=== PATIENT | female | born 1965 | race Caucasian/White ===

== ENCOUNTER 2025-05-13 09:38 | Inpatient (IN) | payer MEDICAID ==
[~2025-05-13] VITALS: Ht 167.6 cm; Wt 85.3 kg
[~2025-05-13 09:38] MED LIST: AMLO5TAB88 PO; ASPI-1406 PO; BUPR-114 PO; CLOP-31 PO; EMPA25TA PO; GLIM4TAB36 MT; HYDR50TA39 PO; INSU100I28 SQ; LIP40 PO; LOSA25TA26 PO; METF-1150 MT; SYN150 PO
[2025-05-13 09:40] VITALS: O2SAT 99
[2025-05-13 10:10] LABS: BASOPHILS % 0.2 % (0.0-2.0); EOSINOPHILS % 0.3 % (0.0-5.0); HEMATOCRIT. 39.0 % (36.0-48.0); HEMOGLOBIN. 12.6 g/dL (12.0-16.0); LYMPHOCYTES % 14.2 % (20.0-50.0); MEAN PLATELET VOLUME 9.1 fl (7.4-10.4); MONOCYTES % 4.2 % (2.0-8.0); NEUTROPHILS % 81.1 % (40.0-76.0); PLATELET 344 x1000/uL (130-400); RED BLOOD CELL COUNT 4.51 mill/uL (4.2-5.4); RED CELL DISTRIBUTION WIDTH 16.1 % (11.6-14.6)
[2025-05-13 10:24] LABS: CREATININE 1.1 mg/dL (0.6-1.0); UREA NITROGEN BLOOD 10 mg/dL (9-23)
[2025-05-13 10:25] LABS: ETHANOL BLOOD < 10 mg/dL (<10); TROPONIN I HIGH SENSITIVITY < 4 ng/L (3.0-34)
[2025-05-13] MEDS ORDERED: ACETAMINOPHEN 325MG TABLET PO PRN (12:30)
[2025-05-13] MEDS ORDERED: IPRATROPIUM/ALBUTEROL 0.5-3(2.5)MG/3ML NEB HHN PRN (12:30)
[2025-05-13] MEDS ORDERED: ONDANSETRON HCL 4MG/2ML INJ IV PRN (12:30)
[2025-05-13] MEDS ORDERED: CLONIDINE 0.1MG TABLET PO PRN (12:30)
[2025-05-13] MEDS ORDERED: DOCUSATE SODIUM 100MG CAPSULE PO PRN (12:30)
[2025-05-13 12:52] LABS: PHOSPHORUS 3.8 mg/dL (2.5-4.9)
[2025-05-13] MEDS: PANTOPRAZOLE SODIUM 40 MG/VIAL IV SCH (12:55)
[2025-05-13 13:01] LABS: INR 1.0
[2025-05-13] MEDS ORDERED: DEXTROSE 50% WATER 50ML SYRINGE IV PRN (13:30)
[2025-05-13] MEDS: LORAZEPAM 1MG TABLET PO PRN (14:04)
[2025-05-13] MEDS: SODIUM CHLORIDE 0.9% 1,000 ML IV ONE (14:07)
[2025-05-13 14:50] LABS: T4 FREE 1.82 ng/dL (0.89-1.76)
[2025-05-13 15:00] VITALS: BP 135/79; PULSE 78; RESP 20; TEMP 36.6404
[2025-05-13 16:00] VITALS: BP 135/70; PULSE 79; RESP 18; TEMP 36.6; O2SAT 98
[2025-05-13] MEDS ORDERED: DIPHENHYDRAMINE 50MG/ML VIAL IV SCH (17:00)
[2025-05-13] MEDS ORDERED: HALOPERIDOL LACTATE 5MG/ML VIAL IM SCH (17:00)
[2025-05-13] MEDS: BLOOD SUGAR DIAGNOSTIC STRIP TEST SCH (17:27)
[2025-05-13] MEDS: INSULIN LISPRO 100 UNITS/ML SUBCUT SCH (17:28)
[2025-05-13] MEDS: ATORVASTATIN CALCIUM 40MG TABLET PO SCH (21:00)
[2025-05-13] MEDS: RISPERIDONE 1MG TABLET PO SCH (21:00)
[2025-05-13] MEDS ORDERED: AMLODIPINE 5MG TABLET PO SCH (21:00)
[2025-05-13] MEDS: ENOXAPARIN 40MG/0.4ML SYR SUBCUT SCH (21:18)
[2025-05-14] VITALS: BP 112/70; PULSE 85; RESP 20; TEMP 36.3; O2SAT 97
[2025-05-14 04:00] VITALS: BP 115/68; PULSE 84; RESP 20; TEMP 37.1; O2SAT 98
[2025-05-14] MEDS ORDERED: LEVOTHYROXINE SODIUM 150MCG TABLET PO SCH (07:40)
[2025-05-14 07:57] VITALS: BP 111/64; PULSE 91; RESP 19; TEMP 36.5; O2SAT 95
[2025-05-14] MEDS: ASPIRIN 81MG TABLET PO SCH (09:00)
[2025-05-14] MEDS: CLOPIDOGREL 75MG TABLET PO SCH (09:00)
[2025-05-14 12:19] VITALS: BP 117/44; PULSE 109; RESP 19; TEMP 36.8; O2SAT 94
[2025-05-14 15:49] VITALS: BP 99/52; PULSE 119; RESP 20; TEMP 37.3; O2SAT 94
[2025-05-14 20:00] VITALS: BP 109/58; PULSE 113; RESP 20; TEMP 36.8; O2SAT 97
[2025-05-14] MEDS: CEFTRIAXONE 1GM/50ML 50 ML IV SCH (21:57)
[2025-05-15] VITALS: BP 117/64; PULSE 107; RESP 20; TEMP 36.4; O2SAT 98
[2025-05-15 04:00] VITALS: BP 98/56; PULSE 95; RESP 19; TEMP 36.8; O2SAT 98
[2025-05-15 07:54] VITALS: BP 97/58; PULSE 91; RESP 18; TEMP 36.8
[2025-05-15 11:30] VITALS: BP 102/58; PULSE 86; RESP 19; TEMP 36.2; O2SAT 95
[2025-05-15 15:40] VITALS: BP 98/59; PULSE 87; RESP 20; TEMP 36.6; O2SAT 96
[2025-05-15 20:00] VITALS: BP 119/70; PULSE 120; RESP 18; TEMP 37; O2SAT 98
[2025-05-16] VITALS: BP 114/76; PULSE 127; RESP 18; TEMP 36.4; O2SAT 98
[2025-05-16 04:00] VITALS: BP 121/55; PULSE 119; RESP 18; TEMP 36.4; O2SAT 97
[2025-05-16 08:00] VITALS: BP 115/81; PULSE 108; RESP 18; TEMP 36.4; O2SAT 100
[2025-05-16 12:00] VITALS: BP 90/63; PULSE 51; RESP 17; TEMP 36.3; O2SAT 93
[2025-05-16 20:00] VITALS: BP 95/53; PULSE 93; RESP 20; TEMP 36; O2SAT 99
[2025-05-17 04:00] VITALS: BP 104/60; PULSE 89; RESP 20; TEMP 36; O2SAT 99
[2025-05-17] MEDS: ACETAMINOPHEN 325MG TABLET PO PRN (05:54)
[2025-05-17 08:00] VITALS: BP 90/60; PULSE 73; RESP 20; TEMP 35.8; O2SAT 95
[2025-05-17] MEDS: LEVOTHYROXINE SODIUM 137MCG TABLET PO SCH (09:35)
[2025-05-17 12:00] VITALS: BP 88/62; PULSE 105; RESP 20; TEMP 35.9; O2SAT 96
[2025-05-17 13:07] LABS: BASOPHILS % 0.2 % (0.0-2.0); EOSINOPHILS % 1.2 % (0.0-5.0); HEMATOCRIT. 42.2 % (36.0-48.0); HEMOGLOBIN. 13.5 g/dL (12.0-16.0); LYMPHOCYTES % 16.4 % (20.0-50.0); MEAN PLATELET VOLUME 10.1 fl (7.4-10.4); MONOCYTES % 8.9 % (2.0-8.0); NEUTROPHILS % 73.3 % (40.0-76.0); PLATELET 178 x1000/uL (130-400); RED BLOOD CELL COUNT 4.86 mill/uL (4.2-5.4); RED CELL DISTRIBUTION WIDTH 16.3 % (11.6-14.6)
[2025-05-17 13:16] LABS: CREATININE 1.0 mg/dL (0.6-1.0); UREA NITROGEN BLOOD 32 mg/dL (9-23)
[2025-05-17 16:00] VITALS: BP 109/67; PULSE 87; RESP 20; TEMP 35.9; O2SAT 100
[2025-05-17 20:00] VITALS: BP 97/62; PULSE 93; RESP 18; TEMP 36.3; O2SAT 98
[2025-05-18] VITALS: BP 125/87; PULSE 104; RESP 18; TEMP 36.2; O2SAT 99
[2025-05-18 04:00] VITALS: BP 119/73; PULSE 97; RESP 18; TEMP 36.3; O2SAT 98
[2025-05-18 12:00] VITALS: BP 103/59; PULSE 102; RESP 18; TEMP 36.2; O2SAT 97
[2025-05-18 16:00] VITALS: BP 135/75; PULSE 101; RESP 18; TEMP 36.2; O2SAT 97
[2025-05-19 08:00] VITALS: BP 137/64; PULSE 70; RESP 16; TEMP 36.7; O2SAT 100
[2025-05-19] MEDS: ENOXAPARIN 40MG/0.4ML SYR SUBCUT SCH (08:12)
[2025-05-19 12:00] VITALS: BP 119/76; PULSE 103; RESP 22; TEMP 36; O2SAT 100
[2025-05-19 16:00] VITALS: BP 100/70; PULSE 99; RESP 20; TEMP 36.4; O2SAT 100
[2025-05-19] MEDS ORDERED: ONDANSETRON 4MG ODT SL PRN (18:00)
[2025-05-20] VITALS: BP 148/95; PULSE 104; RESP 20; TEMP 36.4; O2SAT 97
[2025-05-20 04:00] VITALS: BP 120/79; PULSE 100; RESP 18; TEMP 36.5; O2SAT 97
[2025-05-20 12:00] VITALS: BP 102/71; PULSE 96; RESP 20; TEMP 36.2; O2SAT 100
[2025-05-20 16:00] VITALS: BP 101/63; PULSE 99; RESP 20; TEMP 36.6; O2SAT 100
[2025-05-20] MEDS ORDERED: LEVO137T32 PO (16:37)
[2025-05-20 20:00] VITALS: BP 129/75; PULSE 98; RESP 18; TEMP 35.8; O2SAT 100
[2025-05-20 21:28] VITALS: BP 129/75; PULSE 98; TEMP 96.4
== END 2025-05-20 21:55 | disposition home or self-care (01) | DRG 720 ==
LOC: ER 09:38 → 7WST 12:07 → 7EST 05-16 10:18
PROVIDERS: ADMIT Internal Medicine; ATTEND Internal Medicine
DX: A41.9 Sepsis, unspecified organism (principal); I63.9 Cerebral infarction, unspecified; G82.50 Quadriplegia, unspecified; G93.41 Metabolic encephalopathy; N17.9 Acute kidney failure, unspecified; I10 Essential (primary) hypertension; E03.9 Hypothyroidism, unspecified; E11.65 Type 2 diabetes mellitus with hyperglycemia; F29 Unspecified psychosis not due to a substance or known physiological condition; R26.9 Unspecified abnormalities of gait and mobility; R53.81 Other malaise; R13.10 Dysphagia, unspecified; R47.01 Aphasia; Z79.4 Long term (current) use of insulin; Z79.84 Long term (current) use of oral hypoglycemic drugs; Z79.82 Long term (current) use of aspirin; Z79.899 Other long term (current) drug therapy
CPT/HCPCS: 36415; 70551; 71045; 80048; 80320; 82962; 83036; 83735; 84100; 84439; 84443; 84484; 85025; 92610; 93005; 97167; 99285; A4606; J0696; J1200; J1650; J1815; J2060; J2470; G0480

== ENCOUNTER 2025-06-22 13:38 | Inpatient (IN) | payer MEDICAID ==
[~2025-06-22] VITALS: Ht 162.6 cm; Wt 69.9 kg
[~2025-06-22 13:38] MED LIST changes: -INSU100I28 SQ; +LEVO137T32 PO; -SYN150 PO
[2025-06-22 13:39] VITALS: O2SAT 98
[2025-06-22 14:49] LABS: BASOPHILS % 0.3 % (0.0-2.0); EOSINOPHILS % 1.7 % (0.0-5.0); HEMATOCRIT. 41.5 % (36.0-48.0); HEMOGLOBIN. 13.2 g/dL (12.0-16.0); LYMPHOCYTES % 16.9 % (20.0-50.0); MEAN PLATELET VOLUME 9.6 fl (7.4-10.4); MONOCYTES % 6.5 % (2.0-8.0); NEUTROPHILS % 74.6 % (40.0-76.0); PLATELET 135 x1000/uL (130-400); RED BLOOD CELL COUNT 4.86 mill/uL (4.2-5.4); RED CELL DISTRIBUTION WIDTH 17.1 % (11.6-14.6)
[2025-06-22 14:58] LABS: CREATININE 1.0 mg/dL (0.6-1.0)
[2025-06-22 14:59] LABS: TROPONIN I HIGH SENSITIVITY < 4 ng/L (3.0-34); UREA NITROGEN BLOOD 11 mg/dL (9-23)
[2025-06-22 15:00] LABS: ASPARTATE AMINOTRANSFERASE 12 IU/L (<34)
[2025-06-22 15:01] LABS: BILIRUBIN DIRECT 0.4 mg/dL (<=3.0); BILIRUBIN TOTAL 1.1 mg/dL (0.1-1.0); PROTEIN TOTAL 7.0 g/dL (6.0-8.3)
[2025-06-22] MEDS ORDERED: NALOXONE HCL 0.4MG/ML VIAL IV PRN (17:15)
[2025-06-22] MEDS ORDERED: ONDANSETRON HCL 4MG/2ML INJ IV PRN (17:15)
[2025-06-22] MEDS ORDERED: MAGNESIUM/ALUMINUM HYDROXIDE/SIMETHICONE 30ML UDC PO PRN (17:15)
[2025-06-22] MEDS ORDERED: HYDROCODONE/ACETAMINOPHEN 5/325MG TABLET PO PRN (17:15)
[2025-06-22] MEDS ORDERED: CLONIDINE 0.1MG TABLET PO PRN (17:15)
[2025-06-22] MEDS ORDERED: ZOLPIDEM TARTRATE 5MG TABLET PO PRN (17:15)
[2025-06-22] MEDS: LORAZEPAM 2MG/ML UD SYRINGE IV SCH (17:23)
[2025-06-22] MEDS: ENOXAPARIN 40MG/0.4ML SYR SUBCUT SCH (17:30)
[2025-06-22 19:30] VITALS: BP 137/80; PULSE 70; RESP 18; TEMP 36.2512
[2025-06-22 20:00] VITALS: BP 163/91; PULSE 74; RESP 18; TEMP 35.8; O2SAT 95
[2025-06-23] VITALS: BP 139/73; PULSE 58; RESP 20; TEMP 36.2; O2SAT 96
[2025-06-23 04:00] VITALS: BP 157/85; PULSE 55; RESP 20; TEMP 36.7; O2SAT 98
[2025-06-23 08:00] VITALS: BP 129/69; PULSE 67; RESP 20; TEMP 35.8; O2SAT 96
[2025-06-23] MEDS: PANTOPRAZOLE SODIUM 40 MG/VIAL IV SCH (08:55)
[2025-06-23 12:00] VITALS: BP 125/79; PULSE 56; RESP 17; TEMP 36.2; O2SAT 99
[2025-06-23] MEDS: POTASSIUM CHLORIDE 20MEQ/PACKET PO SCH (12:34)
[2025-06-23 16:00] VITALS: BP 125/77; PULSE 76; RESP 17; TEMP 36.6; O2SAT 99
[2025-06-23 20:00] VITALS: BP 146/83; PULSE 73; RESP 20; TEMP 36.2; O2SAT 98
[2025-06-23] MEDS: HYDRALAZINE HCL 50MG TABLET PO SCH (22:57)
[2025-06-23] MEDS: ATORVASTATIN CALCIUM 40MG TABLET PO SCH (22:58)
[2025-06-23] MEDS: AMLODIPINE 5MG TABLET PO SCH (22:59)
[2025-06-24] VITALS (7 sets, daily range): BP systolic 99–146; BP diastolic 44–83; PULSE 71–92; RESP 16–20; TEMP 36.1–36.6; O2SAT 97–100
[2025-06-24] MEDS: LEVOTHYROXINE SODIUM 137MCG TABLET PO SCH (07:20)
[2025-06-24] MEDS: ASPIRIN 81MG EC TABLET PO SCH (09:36)
[2025-06-24] MEDS: EMPAGLIFLOZIN 25MG TABLET PO SCH (09:36)
[2025-06-24] MEDS: CLOPIDOGREL 75MG TABLET PO SCH (09:37)
[2025-06-24] MEDS: BUPROPION HCL 150MG TABLET XL 24HR PO SCH (09:37)
[2025-06-24] MEDS: LOSARTAN 25 MG TABLET PO SCH (09:37)
[2025-06-24 12:07] LABS: BASOPHILS % 0.5 % (0.0-2.0); EOSINOPHILS % 2.1 % (0.0-5.0); HEMATOCRIT. 43.3 % (36.0-48.0); HEMOGLOBIN. 13.9 g/dL (12.0-16.0); LYMPHOCYTES % 19.2 % (20.0-50.0); MEAN PLATELET VOLUME 10.0 fl (7.4-10.4); MONOCYTES % 7.1 % (2.0-8.0); NEUTROPHILS % 71.1 % (40.0-76.0); PLATELET 159 x1000/uL (130-400); RED BLOOD CELL COUNT 5.11 mill/uL (4.2-5.4); RED CELL DISTRIBUTION WIDTH 17.1 % (11.6-14.6)
[2025-06-24 12:17] LABS: CREATININE 0.9 mg/dL (0.6-1.0); UREA NITROGEN BLOOD 8 mg/dL (9-23)
[2025-06-24] MEDS ORDERED: SODIUM CHLORIDE 0.9% 500 ML IV ONE (14:15)
[2025-06-24] MEDS: SODIUM CHLORIDE 0.9% 500 ML IV ONE (18:14)
[2025-06-24] MEDS: LORAZEPAM 2MG/ML UD SYRINGE IV NR (18:14)
[2025-06-25] VITALS: BP 134/82; PULSE 87; RESP 20; TEMP 37.1; O2SAT 97
[2025-06-25 04:00] VITALS: BP 123/68; PULSE 82; RESP 20; TEMP 36.7; O2SAT 95
[2025-06-25 09:09] VITALS: BP 120/55
[2025-06-25] MEDS ORDERED: ZIPRASIDONE MESYLATE 20MG/VIAL IM ONE (09:15)
[2025-06-25] MEDS: ZIPRASIDONE MESYLATE 20MG/VIAL IM PRN (11:08)
[2025-06-25 12:00] VITALS: BP 117/88; PULSE 103; RESP 18; TEMP 36.4; O2SAT 97
[2025-06-25] MEDS: QUETIAPINE FUMARATE 25MG TABLET PO SCH (12:44)
[2025-06-25] MEDS: HALOPERIDOL LACTATE 5MG/ML VIAL IM PRN (16:24)
[2025-06-25] MEDS: MENTHOL/LANOLIN/CALAMINE/ZN OX OINT 71GM TOP SCH (16:26)
[2025-06-26] VITALS: BP 125/59; PULSE 76; RESP 18; TEMP 35.9; O2SAT 96
[2025-06-26 08:00] VITALS: BP 106/64; PULSE 84; RESP 18; TEMP 36.4; O2SAT 98
[2025-06-26 12:00] VITALS: BP 131/77; PULSE 79; RESP 18; TEMP 36.1; O2SAT 97
[2025-06-26 16:00] VITALS: BP 127/70; PULSE 97; RESP 18; TEMP 36.1; O2SAT 98
[2025-06-26 20:00] VITALS: BP 110/71; PULSE 108; RESP 19; TEMP 35.5; O2SAT 97
[2025-06-27] VITALS: BP_SYST 132; BP_SYST 175; BP_DIAS 104; BP_DIAS 52; PULSE 88; RESP 18; TEMP 36.6; O2SAT 97
[2025-06-27 08:00] VITALS: BP 125/51; PULSE 91; RESP 20; TEMP 36.3; O2SAT 96
[2025-06-27 12:00] VITALS: BP 120/55; PULSE 88; RESP 18; TEMP 36.1; O2SAT 96
[2025-06-28] VITALS: BP 132/87; PULSE 107; RESP 19; TEMP 36.4; O2SAT 96
[2025-06-28 12:00] VITALS: BP 121/81; PULSE 97; RESP 18; TEMP 36.2; O2SAT 96
[2025-06-28 16:00] VITALS: BP 141/84; PULSE 91; RESP 17; TEMP 36.5; O2SAT 95
[2025-06-28 20:00] VITALS: BP 134/68; PULSE 83; RESP 18; TEMP 36.4; O2SAT 96
[2025-06-28] MEDS: FAMOTIDINE 20MG TABLET PO SCH (21:00)
[2025-06-29 04:00] VITALS: BP 121/77; PULSE 84; RESP 18; TEMP 35.9; O2SAT 96
[2025-06-29 20:00] VITALS: BP 127/70; PULSE 65; RESP 16; TEMP 37; O2SAT 98
[2025-06-29] MEDS: HALOPERIDOL LACTATE 5MG/ML VIAL IM SCH (22:34)
[2025-06-30] VITALS: BP 119/68; PULSE 61; RESP 18; TEMP 36.3; O2SAT 99
[2025-06-30 04:00] VITALS: BP 137/86; PULSE 102; RESP 17; TEMP 37.1; O2SAT 99
[2025-06-30 08:00] VITALS: BP 115/78; PULSE 93; RESP 21; TEMP 36.2; O2SAT 93
[2025-06-30 12:00] VITALS: BP 118/75; PULSE 91; RESP 19; TEMP 36.1; O2SAT 95
[2025-06-30 16:00] VITALS: BP 112/73; PULSE 87; RESP 18; TEMP 36.1; O2SAT 97
[2025-06-30 20:00] VITALS: BP 136/75; PULSE 68; RESP 17; TEMP 37.2; O2SAT 98
[2025-07-01] VITALS: BP 141/68; PULSE 74; RESP 19; TEMP 36.6; O2SAT 100
[2025-07-01 04:00] VITALS: BP 137/80; PULSE 82; RESP 17; TEMP 37; O2SAT 99
[2025-07-01 08:00] VITALS: BP 137/87; PULSE 97; RESP 20; TEMP 36.3; O2SAT 100
[2025-07-01 12:00] VITALS: BP 146/80; PULSE 98; RESP 19; TEMP 36.1; O2SAT 97
[2025-07-01 20:00] VITALS: BP 130/75; PULSE 70; RESP 18; TEMP 36.2; O2SAT 95
[2025-07-02] VITALS: BP 128/72; PULSE 74; RESP 18; TEMP 36.2; O2SAT 97
[2025-07-02 04:00] VITALS: BP 146/87; PULSE 96; RESP 18; TEMP 36.4; O2SAT 96
[2025-07-02 08:00] VITALS: BP 134/73; PULSE 65; RESP 20; TEMP 36.4; O2SAT 96
[2025-07-02 12:00] VITALS: BP 132/78; PULSE 93; RESP 19; TEMP 36.2; O2SAT 96
[2025-07-02 16:00] VITALS: BP 122/96; PULSE 96; RESP 20; TEMP 36.4; O2SAT 96
[2025-07-02 20:00] VITALS: BP 120/64; PULSE 89; RESP 19; TEMP 36.3; O2SAT 99
[2025-07-03 08:00] VITALS: BP 133/67; PULSE 78; RESP 20; TEMP 35.6; O2SAT 97
[2025-07-03 20:00] VITALS: BP 121/84; PULSE 84; RESP 18; TEMP 36.3; O2SAT 96
[2025-07-04 08:45] VITALS: BP 142/88; PULSE 88; RESP 18; TEMP 36.4; O2SAT 97
[2025-07-04 12:00] VITALS: BP 142/88; PULSE 79; RESP 18; TEMP 36.4; O2SAT 97
[2025-07-05] MEDS: NYSTATIN POWDER 15GM TOP SCH (14:00)
[2025-07-05 16:00] VITALS: BP 133/76; PULSE 74; RESP 18; TEMP 36.2; O2SAT 99
[2025-07-06 12:00] VITALS: BP 146/62; PULSE 60; RESP 18; TEMP 36.4; O2SAT 96
[2025-07-06 20:00] VITALS: BP 129/78; PULSE 75; RESP 18; TEMP 37; O2SAT 99
[2025-07-07] VITALS: BP 131/68; PULSE 82; RESP 16; TEMP 36.5; O2SAT 99
[2025-07-07 04:00] VITALS: BP 137/80; PULSE 70; RESP 18; TEMP 36.9; O2SAT 99
[2025-07-07 20:00] VITALS: BP 112/66; PULSE 83; RESP 20; TEMP 36.7; O2SAT 98
[2025-07-08] VITALS: BP 114/56; PULSE 85; RESP 17; TEMP 36.4; O2SAT 97
[2025-07-08 04:00] VITALS: BP 145/77; PULSE 88; RESP 19; TEMP 36.5; O2SAT 98
[2025-07-08 08:00] VITALS: BP 155/75; PULSE 92; RESP 18; TEMP 36.6; O2SAT 95
[2025-07-08 16:00] VITALS: BP 113/73; PULSE 107; RESP 18; TEMP 36.4; O2SAT 100
[2025-07-08 20:00] VITALS: BP 115/83; PULSE 69; RESP 18; TEMP 36.7; O2SAT 97
[2025-07-09] VITALS: BP 154/86; PULSE 73; RESP 17; TEMP 36.6; O2SAT 98
[2025-07-09 04:00] VITALS: BP 128/82; PULSE 91; RESP 16; TEMP 37; O2SAT 100
[2025-07-09 12:00] VITALS: BP 130/77; PULSE 91; RESP 18; TEMP 36.4; O2SAT 98
[2025-07-09] MEDS: ACETAMINOPHEN 325MG TABLET PO PRN (14:34)
[2025-07-09] MEDS: ZIPRASIDONE MESYLATE 20MG/VIAL IM PRN (15:07)
[2025-07-09 16:00] VITALS: BP 132/70; PULSE 89; RESP 16; TEMP 36.1; O2SAT 99
[2025-07-09 20:00] VITALS: BP 134/82; PULSE 87; RESP 20; TEMP 36.2; O2SAT 98
[2025-07-09] MEDS: ZIPRASIDONE MESYLATE 20MG/VIAL IM SCH (20:32)
[2025-07-10 08:00] VITALS: BP 134/77; PULSE 96; RESP 18; TEMP 36.2; O2SAT 98
[2025-07-10 16:00] VITALS: BP 122/72; PULSE 103; RESP 18; TEMP 36.3; O2SAT 98
[2025-07-11 16:00] VITALS: BP 126/73; PULSE 98; RESP 18; TEMP 36.1; O2SAT 97
[2025-07-12] VITALS: BP 106/62; PULSE 105; RESP 20; TEMP 36.1; O2SAT 100
[2025-07-12 08:00] VITALS: BP 140/81; PULSE 89; RESP 17; TEMP 36.5; O2SAT 95
[2025-07-12 12:00] VITALS: BP 126/71; PULSE 84; RESP 18; TEMP 36.4; O2SAT 95
[2025-07-12 16:00] VITALS: BP 144/76; PULSE 98; RESP 17; TEMP 36.5; O2SAT 96
[2025-07-12 20:00] VITALS: BP 175/147; PULSE 80; RESP 18; TEMP 36.3; O2SAT 96
[2025-07-13] VITALS: BP 115/65; PULSE 78; RESP 18; TEMP 36.3; O2SAT 96
[2025-07-13 04:00] VITALS: BP 119/34; PULSE 70; RESP 18; TEMP 36.3; O2SAT 97
[2025-07-13 12:00] VITALS: BP 100/39; PULSE 76; RESP 18; TEMP 36.4; O2SAT 94
[2025-07-13 16:00] VITALS: BP 114/77; PULSE 80; RESP 19; TEMP 36.1; O2SAT 100
[2025-07-13 20:00] VITALS: BP 119/69; PULSE 63; RESP 17; TEMP 36.4; O2SAT 98
[2025-07-14] VITALS: BP 112/70; PULSE 79; RESP 16; TEMP 37.3; O2SAT 100
[2025-07-14 04:00] VITALS: BP 120/73; PULSE 61; RESP 17; TEMP 36.6; O2SAT 99
[2025-07-14 08:00] VITALS: BP 137/71; PULSE 92; RESP 18; TEMP 36.4; O2SAT 96
[2025-07-14 12:00] VITALS: BP 121/81; PULSE 62; RESP 18; TEMP 36.4; O2SAT 95
[2025-07-14 16:00] VITALS: BP 142/75; PULSE 87; RESP 18; TEMP 36.4; O2SAT 98
[2025-07-14 20:00] VITALS: BP 142/73; PULSE 69; RESP 18; TEMP 36.2; O2SAT 97
[2025-07-15] VITALS: BP 150/79; PULSE 90; RESP 20; TEMP 37; O2SAT 98
[2025-07-15 04:00] VITALS: BP 131/86; PULSE 78; RESP 16; TEMP 36.3; O2SAT 97
[2025-07-15 08:00] VITALS: BP 135/78; PULSE 79; RESP 19; TEMP 36.2; O2SAT 97
[2025-07-15 12:00] VITALS: BP 150/83; PULSE 82; RESP 18; TEMP 36.4; O2SAT 97
[2025-07-15 15:58] VITALS: BP 150/83; PULSE 82; RESP 18; TEMP 97.5
== END 2025-07-15 16:45 | DRG 241 ==
LOC: ER 13:47 → EDBEDREQTM 16:52 → EDBEDREQ 16:52 → ENRESERV 17:40 → 6EST 18:13
PROVIDERS: ADMIT Internal Medicine; ATTEND Internal Medicine
DX: K29.70 Gastritis, unspecified, without bleeding (principal); G93.41 Metabolic encephalopathy; L89.152 Pressure ulcer of sacral region, stage 2; R62.7 Adult failure to thrive; I69.351 Hemiplegia and hemiparesis following cerebral infarction affecting right dominant side; E03.9 Hypothyroidism, unspecified; I10 Essential (primary) hypertension; E11.9 Type 2 diabetes mellitus without complications; E78.5 Hyperlipidemia, unspecified; L22 Diaper dermatitis; R32 Unspecified urinary incontinence; Z68.26 Body mass index [BMI] 26.0-26.9, adult; Z90.49 Acquired absence of other specified parts of digestive tract; Z79.899 Other long term (current) drug therapy; Z79.82 Long term (current) use of aspirin; Z79.84 Long term (current) use of oral hypoglycemic drugs
CPT/HCPCS: 36415; 72192; 74176; 80048; 80076; 83735; 84484; 85025; 93005; 99285; A4606; J1630; J2060; J2470; J3486